=== PATIENT | male | born 1965 | race Two or more races ===

== ENCOUNTER 2025-02-06 07:48 | Day surgery (SDC) | payer OTHER ==
[2025-02-02 09:04] LABS: Urine Protein, UAD Negative (Negative)
[2025-02-02 09:08] LABS: Hematocrit 49.4 % (41.0-53.0); Hemoglobin 17.1 g/dL (13.5-17.5); Mean Corpuscular Hemoglobin 32.7 pg (28.0-32.0); Mean Corpuscular Volume 94.6 fL (80.0-100.0); Nucleated Red Blood Cells % 0.2 %
[2025-02-02 09:22] LABS: INR 0.97 (0.9-1.15); Partial Thromboplastin Time 25.8 SEC (24.5-34.5); Prothrombin Time 10.3 sec (9.3-11.8)
[2025-02-02 09:27] LABS: Alkaline Phosphatase 65 U/L (46-116); Anion Gap 10 (5-15); BUN/Creatinine Ratio 14.7 (10.0-20.0); Bilirubin, Total 0.7 mg/dL (0.2-1.0); Blood Urea Nitrogen 16 mg/dL (9-23); Calcium 9.8 mg/dL (8.7-10.4); Carbon Dioxide 29 mmol/L (20-31); Chloride 107 mmol/L (98-107); Glucose 105 mg/dL (74-106); Potassium 4.2 mmol/L (3.5-5.1); Total Protein 7.8 g/dL (5.7-8.2)
[2025-02-02 09:28] LABS: Alanine Aminotransferase 54 U/L (7-40); Albumin 4.8 g/dL (3.2-4.8); Sodium 146 mmol/L (136-145)
[~2025-02-06] VITALS: Ht 180.3 cm; Wt 98.4 kg
[~2025-02-06 07:48] MED LIST: AMLO1TAB22 PO; BACL20TA PO; EZET10TA22 PO; LOSA-533 PO
[2025-02-06] MEDS ORDERED: ceFAZolin 2 GM/D5W50ml 50 ML IV ONE (08:51)
[2025-02-06] MEDS ORDERED: KETOROLAC TROMETH 30 MG/ML 1ML VIAL IV ONE (09:45)
[2025-02-06] MEDS ORDERED: METOCLOPRAMIDE HCL 5MG/ml INJ 2ml VIAL IV PRN (09:45)
[2025-02-06] MEDS ORDERED: HYDROmorphone HCL 2 MG/ML VL/or syr IV PRN (09:45)
[2025-02-06] MEDS ORDERED: MORPHINE SULFATE 4 MG/ML SYR/VIAL IV PRN (09:45)
[2025-02-06] MEDS ORDERED: MIDAZOLAM HCL 2MG/2ML 2ml VIAL (1mg/ml) ONE (09:50)
[2025-02-06] MEDS ORDERED: KETAMINE 50mg/ML 1ml syringe ONE (09:50)
[2025-02-06] MEDS ORDERED: fentaNYL CITRATE 100 MCG/2 ML VL ONE (09:50)
[2025-02-06] MEDS ORDERED: MEPERIDINE HCL (25 MG/ML) 1ML VIAL ONE (09:51)
[2025-02-06] MEDS ORDERED: SODIUM CHLORIDE LOCK 50 ML ONE (09:51)
[2025-02-06] MEDS ORDERED: ROCURONIUM 10MG/ML 10ML VIAL IV ONE (09:51)
[2025-02-06] MEDS ORDERED: ONDANSETRON HCL 4 MG/2 ML VIAL ONE (09:51)
[2025-02-06] MEDS ORDERED: PROPOFOL 10 MG/ML 20 ML IV ONE (09:51)
[2025-02-06] MEDS ORDERED: fentaNYL CITRATE 5 ML ONE (09:51)
[2025-02-06] MEDS ORDERED: LIDOCAINE 1% INJ PF 5ML AMP ONE (09:51)
[2025-02-06] MEDS ORDERED: LIDOCAINE HCL 2% TOP JELLY 5ML TOP ONE (09:51)
[2025-02-06] MEDS ORDERED: MORPHINE SULFATE INJ 2 MG/ml SYRG IV PRN (10:27)
[2025-02-06] MEDS ORDERED: SUGAMMADEX 200mg/2ml Vial (100MG/ML) IV ONE (11:03)
[2025-02-06 11:18] VITALS: PULSE 96; RESP 12; TEMP 97
[2025-02-06] MEDS: HYDROmorphone HCL 2 MG/ML VL/or syr IV PRN (11:32)
--- NOTE | 2025-02-06 11:44 | DVHOP2 ---
Discharge Orders Discharge Orders DISCHARGE WHEN CRITERIA MET DISCHARGE WHEN CRITERIA MET. Operative Rep- Outpatient Operative Report PRE-OP DIAGNOSIS: Left shoulder rotator cuff tear Left shoulder biceps tendinitis Left shoulder AC joint arthritis Left shoulder subacromial impingement Left shoulder adhesive capsulitis PRE-OP PAIN LEVEL (0-10): 10 POST-OP DIAGNOSIS: Same POST-OP PAIN LEVEL (0-10): Unclear [place] protocol followed: Yes ESTIMATED BLOOD LOSS: Minimal PROCEDURE: Left shoulder arthroscopic rotator cuff repair Left shoulder arthroscopic biceps tenodesis Left shoulder arthroscopic capsulorrhaphy with humeral side advancement of subscapularis tendon Left shoulder arthroscopic subacromial decompression acromioplasty Left shoulder arthroscopic AC joint resection distal clavicle resection, plating technique once cm Left shoulder lysis of adhesions of the rotator interval Left shoulder aggressive synovectomy and debridement of the labral tissue of the biceps tendon in the rotator interval SURGEON/PIERCING ARTIST: Oral [place] ANESTHESIA: General ANESTHESIOLOGIST: INFORMED CONSENT: Informed Consent: Discussed all inherent risks, complications, and alternatives treatments with the patient. Patient has agreed to proceed with the procedure. I have reviewed all pre-operative assessments including Labs, EKGs, and radiographic images that has been performed. Patient is an appropriate candidate for the outpatient surgical center procedure. The patient had an outside rotator cuff repair done by an outside surgeon the patient had significant pain and discomfort of the left shoulder. The patient has been pain and is covered with a any kind of range of motion based on the shoulder of the patient understands the risks and benefits of surgical and nonsurgical treatment of the patient understands the risks associated with the total knee arthroplasty. The patient understands the risks and benefits of surgical and nonsurgical treatment The patient is seen in the preoperative holding area of the left upper extremity was marked the patient was brought to operative suite general anesthesia was then induced the patient has significant internal rotation and external rotation range of motion limitation the patient is educated on the risks and benefits of surgical and nonsurgical treatment of the patient also has some changes in the glenohumeral joint I did educate the patient my goal will be to repair of the rotator cuff and I was did educate the patient at this time point and it was unclear how the patient will do short-term long-term even if I fix the rotator cuff based on the articular cartilage changes the patient understood the risks and benefits of surgical treatment options for surgical treatment of the left upper extremity The patient is seen in the preoperative holding of the left upper extremity was marked the patient was brought to operative suite general anesthesia was then induced and also to hospital protocol the left upper extremity was prepped and draped in the standard fashion Ancef was given for infection prophylaxis TXA was given for bleeding prophylaxis the left upper extremity was then prepped and draped in the standard fashion once it was then done in the appropriate manner of the posterior portal was made an anterior portal was then made there was significant adhesions noted of the rotator interval there was significant scar tissue noted I released the entire rotator interval I released the labral tissue with the wedges significant adhesions were then noted that I had noted operative border subscapularis tendon tear I tagged with a luggage tag of the patient's biceps tendon had an hourglass deformity with significant adhesions and redness in the biceps tendon I then released the biceps tendon off the glenoid and an insertion site once I was then done in the appropriate manner I then released it off the insertion site I did a punch followed by 475 osteo anchor for a capsulorrhaphy with humerus side advancement of subscapularis tendon along with a an arthroscopic biceps tenodesis once it was then done I did an aggressive synovectomy debridement of the labral tissue of the biceps tendon and the rotator interval with a an aggressive synovectomy and debridement to remove all the scar tissue of the patient had grade 2 grade 3 changes on the humeral head grade 2 changes on the glenoid the patient had a labral tear that was debrided a from 12:00 to 3:00 a.m. 6:00 to 9:00 with a.m. labral debridement once I was then done in the appropriate manner of the patient had a high-grade articular sided rotator cuff tear that was marked with a PDS suture based on the articular changes there is no one to take down the rotator cuff open based on the lesion of the patient had significant adhesions in the subacromial space HAILEY Carbajal I released all the adhesions of the subacromial space once it was then done in the appropriate manner with a of the release of the subacromial space with a subacromial decompression acromioplasty with an RF Wand and a shaver I did a distal clavicle resection coplaning technique 1 cm once I was then completed in the appropriate manner with a coplaning technique in the 1 cm vinicio the PDS suture was found and brought to biologic augmentation of the anterior portal with the 4 tendon javon a biologic augmentation was then placed in the appropriate manner for rotator cuff repair the patient will be in a gunslinger sling the sling for 2 weeks time then the patient will do full range of motion from 2 weeks to 6 weeks. And then the patient will do range of motion at 6 weeks and then stairs strength training at the 6 week vinicio. The patient was also educated on the fact the patient will need a ER MO brace for flexion and extension and internal external rotation of the please order that at the 2 week postop vinicio based on limited range of motion and adhesive capsulitis of the patient. The patient will follow up at the 2 week vinicio. ORAL ZAMORA MD Feb 06, 2025 11:44
[2025-02-06 11:48] VITALS: PULSE 83; RESP 13
[2025-02-06 12:18] VITALS: PULSE 66; RESP 12
[2025-02-06 12:48] VITALS: BP 150/63; PULSE 70; RESP 13; O2SAT 97
== END 2025-02-06 13:18 | disposition home or self-care (01) ==
LOC: SUR 07:48
PROVIDERS: ATTEND Orthopaedic Surgery
DX: M19.012 Primary osteoarthritis, left shoulder (principal); S46.012A Strain of muscle(s) and tendon(s) of the rotator cuff of left shoulder, initial encounter; S46.219A Strain of muscle, fascia and tendon of other parts of biceps, unspecified arm, initial encounter; S43.432A Superior glenoid labrum lesion of left shoulder, initial encounter; M75.02 Adhesive capsulitis of left shoulder; M75.22 Bicipital tendinitis, left shoulder; M25.812 Other specified joint disorders, left shoulder; G89.18 Other acute postprocedural pain; I10 Essential (primary) hypertension; E78.00 Pure hypercholesterolemia, unspecified; Z79.899 Other long term (current) drug therapy; Z98.890 Other specified postprocedural states; Z87.891 Personal history of nicotine dependence; X58.XXXA Exposure to other specified factors, initial encounter; Y93.89 Activity, other specified; Y92.89 Other specified places as the place of occurrence of the external cause; Y99.8 Other external cause status
CPT/HCPCS: 29824; 29826; 29827; 29828; 36415; 64415; 80053; 81001; 85025; 85610; 85730; C1713; J0169; J0690; J1100; J1171; J2175; J2250; J2405; J2704; J3010; A4565